=== PATIENT | male | born 1970 | race Caucasian/White ===

== ENCOUNTER 2021-07-22 08:53 | Day surgery (SDC) | payer OTHER ==
[2021-07-15 15:15] VITALS: BMI 32.9
[~2021-07-22 08:53] MED LIST: DEXAMETHASONE SOD PHOSPHATE 4 MG/ML 1 ML VIAL IV ONE; LACTATED RINGERS 1,000 ML IV SCH; MIDAZOLAM 2 MG/2 ML VIAL IV PRN; ONDANSETRON 4 MG/2 ML VIAL IVP ONE
[2021-07-22] MEDS ORDERED: MIDAZOLAM 2 MG/2 ML VIAL IVP ONE (10:15)
[2021-07-22] MEDS ORDERED: fentaNYL (PF) 50 MCG/ML 2 ML AMP IVP ONE (10:17)
[2021-07-22] MEDS ORDERED: fentaNYL (PF) 50 MCG/ML 2 ML AMP ONE (10:55)
[2021-07-22] MEDS ORDERED: ROPIVACAINE 5 MG/ML 30 ML VIAL ONE (10:55)
[2021-07-22] MEDS ORDERED: PROPOFOL 10 MG/ML 20 ML VIAL IV ONE (10:55)
[2021-07-22] MEDS ORDERED: SODIUM CHLORIDE 0.9% (PF) 10 ML VIAL ONE (10:55)
[2021-07-22] MEDS ORDERED: MIDAZOLAM 2 MG/2 ML VIAL ONE (10:55)
[2021-07-22] MEDS ORDERED: LIDOCAINE 1% INJ 10MG/ML (20 ML MDV) ONE (10:55)
[2021-07-22] MEDS ORDERED: SODIUM CHLORIDE 0.9% 100 ML with CLINDAMYCIN 600 MG IV ONE ×2 (11:00)
[2021-07-22] MEDS ORDERED: LACTATED RINGERS 1,000 ML IV ONE ×2 (11:56)
[2021-07-22 12:19] VITALS: TEMP 97.2
[2021-07-22] MEDS: HYDROmorphone 0.5 MG/0.5 ML SYRINGE IVP PRN ×2 (12:22→12:33)
--- NOTE | 2021-07-22 12:23 | XR ---
Fluoroscopy INDICATION: Pain FINDINGS: Fluoroscopy time: 29 seconds. Images obtained: 3. IMPRESSIONS: 1. Documentation of fluoroscopy.
--- NOTE | 2021-07-22 12:28 | FL ---
Fluoroscopy INDICATION: Pain FINDINGS: Fluoroscopy time: 29 seconds. Images obtained: 2. IMPRESSIONS: 1. Documentation of fluoroscopy.
--- NOTE | 2021-07-22 12:30 | P.OP ---
Date of Procedure: 07/22/21 Preoperative Diagnosis: Displaced lateral malleolar fracture right ankle Postoperative Diagnosis: 1. Displaced lateral malleolar fracture left ankle 2. Ruptured syndesmosis left ankle Procedure(s) Performed: 1. Open reduction with internal fixation right lateral malleolar fracture 2. repair of syndesmosis right ankle Implants: Arthrex precontoured lateral malleolar plate 3.5 mm locking screws, 3.5 mm nonlocking screws, 3.0 cortical screws Arthrex tight rope Anesthesia: CIPRIANOA Surgeon: Abhilash Ng Estimated Blood Loss (ml): 3 Pathology: none sent Condition: stable Disposition: PACU Operative Findings: After fixation of the lateral malleolar fracture the ankle was stressed under live fluoroscopy. It was noted that there was significant gapping at the tibia- fibula articulation. Live fluoroscopy during the fixation of the syndesmosis revealed very small posterior malleolar fracture from the tibia that was not evident on the preoperative x-rays. This likely accounted for the syndesmotic instability. Description of Procedure: Prior to the patient being brought to the operating room, anesthesia administered nerve block on the right lower extremity. The patient was then brought into the operative room placed on the table supine position. Timeout was taken to confirm correct patient identifiers, correct procedure, and correct site of surgery. When all staff in the room were in agreement with the timeout the patient was induced and placed under general anesthesia. A well-padded tourniquet was placed on the right thigh and a bump underneath the right hip to internally rotate the right leg. The right leg was then prepped and draped in usual manner. The right leg was exsanguinated with an Esmarch bandage, the knee slightly flexed, and the tourniquet inflated to 250 mmHg. Attention was directed to the right lateral ankle where a linear incision was made over the lateral malleolus. The incision was deepened down to the subcutaneous layer careful to identify, avoid, and retract any neurovascular structures and cauterize any bleeding vessels. Sharp dissection was carried down to the periosteum which then reflected anterior posteriorly from lateral malleolus. The fracture was immediately identified and there was significant hematoma between the fracture fragments. The fragments were distracted in the hematoma and any other soft tissue where removed. The wound is then thoroughly irrigated. Reduction clamps were used to rotate and bring the fibular fracture back out to length. Visually the reduction appeared anatomic was also confirmed under fluoroscopy. Then a 3.5 mm cortical screw was inserted from anterior to posterior perpendicular to the fracture as interfragmentary compression screw. Fluoroscopic imaging showed proper placement of the screw and maintain reduction of the fracture. Then an Arthrex precontoured lateral malleolar plate was positioned over the lateral malleolus and under fluoroscopy fluoroscopy was placed in the correct alignment and then temporarily fixated. 3.5 locking screws were placed in the proximal holes first and then 3.0 screws distally which were nonlocking. All distal screws were drilled and placed under direct fluoroscopic visualization so as not anterior the lateral gutter of the ankle joint. One additional 3.5 mm nonlocking screw was also placed in the proximal holes. Or scopic imaging showed anatomic realignment of fibula. Also at that time under live fluoroscopy the ankle was stressed and during the eversion external rotation test there was significant gapping noted at the syndesmosis. Large periarticular clamp was applied across the syndesmosis and held in place with the ankle maximally dorsiflexed. The ankle was again stressed and there was no abnormal gapping noted. At that time it was determined that a syndesm otic fixation was necessary. So a guidewire for an Arthrex tight rope was placed through one of the holes in the plate proximally 1 and has centimeters superior to the ankle joint. It was run from lateral to medial and slightly anterior. Overdrill was performed on the wire. And then the drill wire were both removed. The tight rope was inserted until the medial button was clear of the tibial cortex. The button was released and the manipulated to lay flat against the tibia. Then the lathe spotter was removed and then with a reduction clamp still in place the lateral button was tightened down to the plate to the full extent while holding the ankle maximally dorsiflexed. The reduction clamps were removed and again the ankle was stressed under fluoroscopy. There was no abnormal gapping noted at the syndesmosis. In the medial ankle joint gutter showed no widening. The wound is then thoroughly irrigated with antibiotic saline. Deep closure was done with 2-0 Vicryl. Subcu closure done with 4-0 Monocryl. Skin closure done with stainless steel tracy. An Arthrex jumpstart dressing was placed directly over the incision and covered with a bulky dry dressing. The tourniquet was released and capillary refill return to all digits on the right foot. The patient was then placed in a well-padded, well molded [place] posterior mold/sugar tong splint. Ankle was held in neutral position as the splint dried. The patient was then reversed from general anesthesia and taken recovery vital signs stable.
[2021-07-22 12:47] VITALS: RESP 16
--- NOTE | 2021-07-22 13:16 | P.ANPRN ---
Procedure Note - Anesthesia - Nerve Block Performed Right Popliteal Single Time Out Performed: Yes (1014) Date of Procedure: 07/22/21 Procedure Start Time: 10:16 Procedure Stop Time: 10:20 Location of Patient: PreOp Indication: Acute Post-Operative Pain, Requested by Surgeon Specifically requested for management of pain by DrLeann: Abhilash Ng Sedation Type: Sedate with meaningful contact maintained Preparation: Sterile Prep Position: Left Lateral Catheter: None Needle Types: Pajunk Needle Gauge: 21 Ultrasound used to visualize needle placement: Yes Ultrasound used to observe medication spread: Yes Injectate: 0.5% Ropivacaine (see comment for volume) (15cc + 15cc nacl) Blood Aspirated: No Pain Paresthesia on Injection Noted: No Resistance on Injection: Normal Image Stored and Saved: Yes Events: Uneventful and Well Tolerated Right Adductor Canal Single Time Out Performed: Yes (1014) Date of Procedure: 07/22/21 Procedure Start Time: Procedure Stop Time: 10:24 Location of Patient: PreOp Indication: Acute Post-Operative Pain, Requested by Surgeon Specifically requested for management of pain by Dr.: Abhilash Ng Sedation Type: Sedate with meaningful contact maintained Preparation: Sterile Prep Position: Supine Catheter: None Needle Types: Pajunk Needle Gauge: 21 Ultrasound used to visualize needle placement: Yes Ultrasound used to observe medication spread: Yes Injectate: 0.5% Ropivacaine (see comment for volume) (15cc + 15cc nacl) Blood Aspirated: No Pain Paresthesia on Injection Noted: No Resistance on Injection: Normal Image Stored and Saved: Yes Events: Uneventful and Well Tolerated
[2021-07-22] MEDS ORDERED: KETOROLAC 30 MG/ML 1 ML VIAL ONE (13:56)
[2021-07-22] MEDS ORDERED: HYDROcodone/APAP 5-325MG 1 EACH TAB ONE (13:56)
[2021-07-22] MEDS ORDERED: HYDROcodone/APAP 5-325MG 1 EACH TAB PO ONE (13:57)
[2021-07-22] MEDS ORDERED: KETOROLAC 15 MG/ML 1 ML VIAL IVP ONE (14:03)
[2021-07-22 14:45] VITALS: BP 127/76; PULSE 76
== END 2021-07-22 15:02 | disposition home or self-care (01) ==
LOC: OR 08:53
PROVIDERS: ATTEND Podiatrist
DX: S82.61XA Displaced fracture of lateral malleolus of right fibula, initial encounter for closed fracture (principal); S93.431A Sprain of tibiofibular ligament of right ankle, initial encounter; W00.0XXA Fall on same level due to ice and snow, initial encounter; I10 Essential (primary) hypertension; E78.5 Hyperlipidemia, unspecified; Z79.899 Other long term (current) drug therapy; Z87.891 Personal history of nicotine dependence; Z83.3 Family history of diabetes mellitus; Z82.49 Family history of ischemic heart disease and other diseases of the circulatory system
CPT/HCPCS: 64447; 64445; 76942; 73600; 27829; 27792; C1713 ×2; J2250; J1100; J2405; J2001; J3010; J2795; J1885; J2704; J1170